=== PATIENT | female | born 1970 | race Asian ===

== ENCOUNTER 2016-11-04 09:28 | Emergency (ER) | payer BC ==
[~2016-11-04] VITALS: Ht 157.5 cm; Wt 49.9 kg
--- NOTE | 2016-11-04 09:31 | NUR ---
PATIENT AMBULATED TO ER BED 7.
--- NOTE | 2016-11-04 09:35 | NUR ---
ORDER DETAILER ASSISTANCE PROVIDED BY NIKKY CLERK TO [employer] #[id number].
[2016-11-04 09:43] VITALS: BP 114/69
--- NOTE | 2016-11-04 09:44 | NUR ---
Patient being evaluated by physician at bedside.
--- NOTE | 2016-11-04 09:45 | NUR ---
46/F presents to ED for evaluation of left eye pain x1 day. Pt has redness to left eye. Pt is Mandarin speaking. Translation phones used for interpretation. Pt states "I feel like something is in my eye." Patient is AOX4, clear speech. VSS.
[2016-11-04] MEDS ORDERED: FLUORESCEIN OPTH STRIP 1 MG ONE (09:51)
[2016-11-04] MEDS ORDERED: TETRACAINE 0.5% OPTH SOL 2 ML BTL ONE (09:51)
--- NOTE | 2016-11-04 09:54 | NUR ---
Dr. Desir at bedside for eye exam.
[2016-11-04] MEDS ORDERED: FLUORESCEIN OPTH STRIP 1 MG OP ONE (09:55)
[2016-11-04] MEDS ORDERED: IBUPROFEN 600 MG TAB PO ONE (09:55)
[2016-11-04] MEDS ORDERED: TETRACAINE 0.5% OPTH SOL 2 ML BTL OP ONE (09:55)
--- NOTE | 2016-11-04 10:04 | NUR ---
Pt refused Motrin. Pt states "It's okay" while nodding and pointing to her left eye.
[2016-11-04 10:20] VITALS: BP 114/69
--- NOTE | 2016-11-04 10:20 | NUR ---
Patient discharged with v/s stable. Written and verbal after care instructions given and explained. Patient alert, oriented and verbalized understanding of instructions. Ambulatory with steady gait. All questions addressed prior to discharge. ID band removed. Patient advised to follow up with PMD. Rx of motrin,gentamicin sulfate karen given. Patient educated on indication of medication including possible reaction and side effects. Opportunity to ask questions provided and answered.
--- NOTE | 2016-11-04 10:20 | NUR ---
Chart checked and completed. The patient's care was reviewed and supervised by Virgie Crawford RN.
--- NOTE | 2016-11-04 10:20 | NUR ---
patient repeated d/c instruction
== END 2016-11-04 10:20 | disposition home or self-care (01) ==
LOC: MED 09:28
DX: S05.02XA Injury of conjunctiva and corneal abrasion without foreign body, left eye, initial encounter (principal); X58.XXXA Exposure to other specified factors, initial encounter; Y93.89 Activity, other specified; Y92.89 Other specified places as the place of occurrence of the external cause; Y99.8 Other external cause status